=== PATIENT | female | born 1950 | race Caucasian/White ===

== ENCOUNTER 2024-07-07 16:34 | Emergency (ER) | payer MEDICARE, SELFPAY ==
[2024-07-07 16:35] VITALS: BP 162/73; PULSE 76; RESP 17; TEMP 37; O2SAT 98; BMI 22.8
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
[2024-07-07 17:40] VITALS: BP 145/88; PULSE 79; O2SAT 94
[2024-07-07] MEDS: iohexol 350 mg/mL 500 mL Btl (per mL) IV (17:59)
[2024-07-07 18:10] VITALS: BP 144/75; PULSE 83; O2SAT 98
[2024-07-07 18:40] VITALS: BP 144/79; PULSE 80; O2SAT 97
[2024-07-07] MEDS: oxyCODONE-APAP 5-325 mg Tablet 2 TAB PO (19:05)
[2024-07-07 19:14] VITALS: BP 142/77; PULSE 72; O2SAT 98
== END 2024-07-07 19:30 | disposition home or self-care (01) ==
PROVIDERS: Emergency Provider Emergency Medicine
DX: S22.20XA Unspecified fracture of sternum, initial encounter for closed fracture (principal); V89.2XXA Person injured in unspecified motor-vehicle accident, traffic, initial encounter
CPT/HCPCS: 71250; 71275; 99285; J9999